=== PATIENT | male | born 1960 ===

== ENCOUNTER 2018-07-08 06:41 | Day surgery (SDC) | payer BC ==
[2018-07-08 07:01] VITALS: BMI 27.9
[2018-07-08 07:07] VITALS: TEMP 97.3
[2018-07-08] MEDS ORDERED: Lactated Ringer's 1,000 ML IV ONE (08:25)
[2018-07-08] MEDS ORDERED: Propofol 10 mg/ml Inj (20 ML) ONE (08:26)
[2018-07-08] MEDS ORDERED: Lidocaine Hydrochloride 5 ML INJ ONE (08:43)
[2018-07-08 09:13] VITALS: RESP 12
[2018-07-08 09:28] VITALS: O2SAT 100
[2018-07-08 10:09] VITALS: BP 110/66; PULSE 70
== END 2018-07-08 10:00 | disposition home or self-care (01) ==
LOC: C.ENDO 06:41
PROVIDERS: ATTEND Internal Medicine Gastroenterology
DX: Z12.11 Encounter for screening for malignant neoplasm of colon (principal); D12.2 Benign neoplasm of ascending colon; D12.4 Benign neoplasm of descending colon; K64.8 Other hemorrhoids
CPT/HCPCS: 45380; 88305; J2704; J7120